=== PATIENT | male | born 1965 | race Caucasian/White ===

== ENCOUNTER 2017-08-18 22:49 | Emergency (ER) | payer OTHER ==
[~2017-08-18] VITALS: Ht 172.7 cm; Wt 81.6 kg
--- NOTE | 2017-08-18 23:12 | NUR ---
PATIENT BROUGHT IN BY [facility] 84 FOR CHEST PAIN/TACHYCARDIA. PATIENT IN SVT DURING TRANSPORT PER PARAMEDICS. PATIENT STATES HE SMOKE MARIJUANA AND NOW FEELS LIKE HIS HEART IS BEATING FAST. PATIENT SEEMS WITHDRAWN BUT ABLE TO RESPOND TO VERBAL AND TACTILE STIMULI.
[2017-08-18 23:27] LABS: BASOPHILS # (AUTO) 0.1 K/uL (0.0-8.0); BASOPHILS % (AUTO) 0.7 % (0.0-2.0); EOSINOPHILS # (AUTO) 0.3 K/uL (0.0-0.7); EOSINOPHILS % (AUTO) 3.2 % (0.0-7.0); HEMATOCRIT 44.8 % (36.7-47.1); HEMOGLOBIN 14.7 g/dL (12.5-16.3); LYMPHOCYTES % (AUTO) 42.6 % (20.5-51.5); MEAN CORPUSCULAR HEMOGLOBIN 27.8 uug (23.8-33.4); MEAN CORPUSCULAR HGB CONC 33 g/dL (32.5-36.3); MEAN CORPUSCULAR VOLUME 84.7 fL (73.0-96.2); MONOCYTES # (AUTO) 0.8 K/uL (2.0-10.0); MONOCYTES % (AUTO) 8.5 % (0.0-11.0); NEUTROPHILS # (AUTO) 4.3 K/uL (1.8-8.9); PLATELET COUNT (AUTO) 259 K/uL (152-348); RED BLOOD CELL COUNT(AUTO) 5.29 MIL/uL (4.06-5.63); WHITE BLOOD COUNT (AUTO) 9.5 K/uL (3.6-10.2)
[2017-08-18] MEDS ORDERED: LORAZEPAM 2 MG/1 ML VIAL IV ONE (23:30)
[2017-08-18] MEDS ORDERED: IV NORMAL SALINE 1000 ML BAG IV ONE (23:30)
[2017-08-18] MEDS ORDERED: LORAZEPAM 2 MG/1 ML VIAL ONE (23:31)
[2017-08-18 23:39] LABS: CREATININE 1.4 mg/dL (0.6-1.3); POTASSIUM 3.3 mmol/L (3.5-5.1)
[2017-08-18 23:41] LABS: ETHANOL < 3 MG/DL (0-0)
[2017-08-19 00:06] LABS: THYROID STIMULATING HORMONE 1.321 mIU/mL (0.358-3.740)
--- NOTE | 2017-08-19 00:22 | NUR ---
MARIA LUISA BARNES AT BEDSIDE FOR PATIENT UPDATE.
--- NOTE | 2017-08-19 01:03 | NUR ---
FAMILY AT BEDSIDE.
--- NOTE | 2017-08-19 01:26 | NUR ---
Patient in bed, no acute distress noted.
[2017-08-19 01:40] LABS: *AMPHETAMINE, URINE NEGATIVE (NEGATIVE); *BARBITURATE, URINE NEGATIVE (NEGATIVE); *CANNABINOID, URINE POSITIVE (NEGATIVE); *COCCAINE, URINE NEGATIVE (NEGATIVE); *OPIATE, URINE NEGATIVE (NEGATIVE); *PHENCYCLIDINE SCREEN,URINE NEGATIVE (NEGATIVE)
--- NOTE | 2017-08-19 02:39 | NUR ---
Patient discharged to home in stable conditon. Written and verbal after care instructions given. Patient verbalizes understanding of instructions. Ambulated from ER with stable gait. All belongings with patient. Patient to be driven home by sister in private vehicle. Peripheral IV removed prior to d/c.
[2017-08-19 02:42] VITALS: BP 128/77
== END 2017-08-19 02:43 | disposition home or self-care (01) ==
LOC: ER 22:51
DX: I47.1 Supraventricular tachycardia (principal); E86.0 Dehydration; E87.6 Hypokalemia; F12.10 Cannabis abuse, uncomplicated; J45.909 Unspecified asthma, uncomplicated
CPT/HCPCS: 36415; 70030-TC; 71045; 80307; 84443; 85025; 85730; 93005; A4663; G0480; J2060

== ENCOUNTER 2021-06-06 14:48 | Emergency (ER) | payer SELFPAY ==
[~2021-06-06] VITALS: Ht 175.3 cm; Wt 81.6 kg
--- NOTE | 2021-06-06 15:05 | NUR ---
Dr Souza at the bedside for MSE.
[2021-06-06 16:19] VITALS: BP 118/84
--- NOTE | 2021-06-06 16:20 | NUR ---
Patient discharged to home in stable condition. Written and verbal after care instructions given. Patient verbalizes understanding of instructions. Stressed follow up or return to ER for worsening s/s.
== END 2021-06-06 16:21 | disposition home or self-care (01) ==
LOC: ER 14:56
DX: M20.011 Mallet finger of right finger(s) (principal); J45.909 Unspecified asthma, uncomplicated; S61.411D Laceration without foreign body of right hand, subsequent encounter; W18.30XD Fall on same level, unspecified, subsequent encounter
CPT/HCPCS: 73140; A4663